=== PATIENT | male | born 1995 | race Caucasian/White ===

== ENCOUNTER 2016-07-05 10:10 | Emergency (ER) | payer OTHER ==
[~2016-07-05] VITALS: Ht 167.6 cm; Wt 80.0 kg
[~2016-07-05 10:10] MED LIST: AMOX500T PO; ANTI2TAB PO; ZOFR4TAB3 PO
[2016-07-05 10:11] VITALS: BP 133/65; PULSE 67; RESP 12; TEMP 98.1; O2SAT 99
[2016-07-05] MEDS ORDERED: LIDOCAINE HCL 1% 50 ML VIAL INFIL ONE (11:00)
[2016-07-05] MEDS ORDERED: NAPR500 PO (11:50)
[2016-07-05] MEDS ORDERED: BACT400T PO (11:50)
[2016-07-05] MEDS ORDERED: HYDR-3533 PO (11:50)
--- NOTE | 2016-07-05 11:50 | PD ---
HPI Chief Complaint: Skin Problem Time Seen by Provider: 10:22 Travel History International Travel<30 days: No Contact w/Intl Traveler<30days: No Traveled to known affect area: No History of Present Illness HPI 20-year-old man with a draining pilonidal abscess to his superior gluteal cleft. Never noticed it before. Pain redness swelling for the past couple days. Draining for the past day or 2. No other complaints. History Past Medical History Medical History: Denies Significant Hx Tetanus Vaccination: Unknown Influenza Vaccination: Yes Social History Alcohol Use: Yes (occ) Tobacco Use: Yes (OCCASIONAL CIGAR) Allergies-Medications (Allergen,Severity, Reaction): Coded Allergies: Vancomycin (Verified Allergy, Severe, RED, 07/05/16) Reported Meds & Prescriptions Reported Meds & Active Scripts Active No Active Prescriptions or Reported Medications Review of Systems Except as stated in HPI: all other systems reviewed are Neg Physical Exam Narrative GENERAL: Well-appearing 20-year-old man, no acute distress. SKIN: Warm and dry. CARDIOVASCULAR: Warm and well perfused. RESPIRATORY: Normal rate and effort. MUSCULOSKELETAL: Small area draining redness in the superior gluteal cleft. NEUROLOGICAL: Awake and alert. No gross deficits. Data Data Last Documented VS Vital Signs Date Time Temp Pulse Resp B/P Pulse Ox O2 Delivery O2 Flow Rate FiO2 07/05/16 10:35 16 07/05/16 10:11 98.1 67 133/65 99 Room Air Orders Lidocaine 1% Inj (50 Ml) (Xylocaine 1% I (07/05/16 11:00) [facility] Medical Decision Making Medical Screen Exam Complete: Yes Emergency Medical Condition: Yes Differential Diagnosis Abscess, pilonidal cyst, other Narrative Course Medical decision making 20-year-old male with an infected pilonidal cyst. Drained bedside. Procedures Procedure Narrative INCISION AND DRAINAGE OF ABSCESS: The area was prepped and was sterilely draped. A subcutaneous wheal of % Xylocaine 1 with a total number 5 mL was used to anesthetize the area. The area was properly anesthetized. A number 11 scalpel was used to make a 1-cm incision across the area of the abscess. Cultures were obtained. The abscess was drained an irrigated with normal saline. Quarter inch iodoform packing was placed in the wound. Sterile dressing applied. Patient advised to have packing removed in two days. Diagnosis Primary Impression: Pilonidal abscess Additional Instructions: Keep area clean and dry. Remove packing in 48 hours. Take medications as prescribed. Return to the emergency department for any new or worsening symptoms. Med/Other Pt SpecificInfo: Prescription(s) given Scripts Sulfamethoxazole-Trimethoprim (Bactrim)400-80 Mg Tab1 Tab PO BID 5 Days Ref 0 Prov:Cheko Levy MD 07/05/16 Hydrocodone-Acetaminophen (Lortab)5-325 Mg Tab1-2 Tab PO Q6H PRN (PAIN) #4 TAB Prov:Cheko Levy MD 07/05/16 Naproxen (Naprosyn)500 Mg Szv657 Mg PO BID PRN (PAIN SCALE 1 TO 10) #20 TAB Prov:Cheko Levy MD 07/05/16 Disposition: 01 DISCHARGE HOME Condition: Stable Cheko Levy MD Jul 05, 2016 11:50
== END 2016-07-05 12:15 | disposition home or self-care (01) ==
LOC: NEPB 10:10
DX: L05.01 Pilonidal cyst with abscess (principal)
CPT/HCPCS: 10061

== ENCOUNTER 2016-09-10 10:38 | Emergency (ER) | payer OTHER ==
[~2016-09-10] VITALS: Ht 167.6 cm; Wt 71.5 kg
[~2016-09-10 10:38] MED LIST changes: -AMOX500T PO; -ANTI2TAB PO; +BACT400T PO; +HYDR-3533 PO; +NAPR500 PO; -ZOFR4TAB3 PO
[2016-09-10 10:40] VITALS: BP 140/76; PULSE 56; RESP 20; TEMP 98.4; O2SAT 100
[2016-09-10] MEDS ORDERED: SODIUM CHLOR 0.9% 1000 ML INJ 1,000 ML IV SCH (11:04)
[2016-09-10] MEDS ORDERED: ONDANSETRON HCL 4 MG/2 ML VIAL IVP ONE (11:15)
[2016-09-10 11:18] LABS: BASOPHIL % 0.4 % (0.0-2.0); EOSINOPHIL % 0.5 % (0.0-4.0); HEMATOCRIT 44.4 % (39.0-51.0); HEMO FLAGS DIFF FINAL; LYMPHOCYTE # 1.3 TH/MM3 (1.0-4.8); MEAN CELL VOLUME 86.1 FL (80.0-100.0); MEAN CORPUSCULAR HEMOGLOBIN 29.5 PG (27.0-34.0); MEAN CORPUSCULAR HGB CONC 34.2 % (32.0-36.0); NEUT % 72.1 % (16.0-70.0); PLATELET COUNT 215 TH/MM3 (150-450); RED BLOOD COUNT 5.16 MIL/MM3 (4.50-5.90); RED CELL DISTRIBUTION WIDTH 12.9 % (11.6-17.2)
[2016-09-10] MEDS ORDERED: FAMOTIDINE 20 MG/2 ML VIAL IV PUSH ONE (11:30)
--- NOTE | 2016-09-10 11:31 | PD ---
HPI Chief Complaint: GI Complaint Time Seen by Provider: 11:25 Travel History International Travel<30 days: No Contact w/Intl Traveler<30days: No Traveled to known affect area: No History of Present Illness HPI 20 yo male here for evaluation of nausea and vomiting the mornings as well as inability to keep anything down per patient. Per patient his been going on for almost a couple months now. Per patient is progressively gotten worse the past 3 days. Per patient he usually wakes up with nausea and vomiting. Denies any abdominal pain. No bowel movement urinary issues. He does tell me that the bowels a little more likely than usual but he believes that this is because he has not been eating as much. Per patient he also feels anorexic. He denies drinking a lot of alcohol. No drugs. Allergy to vancomycin. Patient was recently seen here for analysis and he states that this is not related and his had the symptoms before this. He has an allergy to vancomycin. He states compliance with treatment for the pilonidal cyst. Per patient he has no pain. He does feel dehydrated and he was seen drinking water in the room with no distress. Per patient he has no symptoms. Patient has not seen anybody for this. PFSH Past Medical History Medical History: Denies Significant Hx Diminished Hearing: No Immunizations Current: No Past Surgical History Surgical History: No Previous Surgery Tonsillectomy: Yes Social History Alcohol Use: No Tobacco Use: No Substance Use: No Allergies-Medications (Allergen,Severity, Reaction): Coded Allergies: Vancomycin (Verified Allergy, Severe, RED, 09/10/16) Reported Meds & Prescriptions Reported Meds & Active Scripts Active Protonix (Pantoprazole Sodium) 20 Mg Tab 20 Mg PO DAILY PRN Ranitidine (Ranitidine HCl) 150 Mg Tab 150 Mg PO BID PRN Zofran (Ondansetron HCl) 4 Mg Tab 4 Mg PO Q6HR PRN Review of Systems Except as stated in HPI: all other systems reviewed are Neg Physical Exam Narrative GENERAL: SKIN: Warm and dry. HEAD: Atraumatic. Normocephalic. EYES: Pupils equal and round. No scleral icterus. No injection or drainage. ENT: No nasal bleeding or discharge. Mucous membranes pink and moist. Tongue is midline. No uvula deviation. NECK: Trachea midline. No JVD. CARDIOVASCULAR: Regular rate and rhythm. No murmurs, S3, S4. RESPIRATORY: No accessory muscle use. Clear to auscultation. Breath sounds equal bilaterally. GASTROINTESTINAL: Abdomen soft, non-tender, nondistended. Hepatic and splenic margins not palpable. MUSCULOSKELETAL: Extremities without clubbing, cyanosis, or edema. No obvious deformities. Full range of motion of the upper and lower extremities bilaterally. 2+ pulses bilaterally. NEUROLOGICAL: Awake and alert. No obvious cranial nerve deficits. Motor grossly within normal limits. Five out of 5 muscle strength in the arms and legs. Normal speech. PSYCHIATRIC: Appropriate mood and affect; insight and judgment normal. Data Data Last Documented VS Vital Signs Date Time Temp Pulse Resp B/P Pulse Ox O2 Delivery O2 Flow Rate FiO2 09/10/16 10:40 98.4 56 20 140/76 100 Room Air Orders Complete Blood Count With Diff (09/10/16 11:04) Comprehensive Metabolic Panel (09/10/16 11:04) Lipase (09/10/16 11:04) Urinalysis - C+S If Indicated (09/10/16 11:04) Magnesium (Mg) (09/10/16 11:04) Thyroid Stimulating Hormone (09/10/16 11:04) Iv Access Insert/Monitor (09/10/16 11:04) Ondansetron Inj (Zofran Inj) (09/10/16 11:15) Sodium Chlor 0.9% 1000 Ml Inj (Ns 1000 M (09/10/16 11:04) Famotidine Inj (Pepcid Inj) (09/10/16 11:30) Ct Abd/Pel W Iv Contrast(Rout) (09/10/16 ) Iohexol 350 Inj (Omnipaque 350 Inj) (09/10/16 12:35) Labs Laboratory Tests Test 09/10/16 09/10/16 11:08 11:45 White Blood Count 7.0 TH/MM3 Red Blood Count 5.16 MIL/MM3 Hemoglobin 15.2 GM/DL Hematocrit 44.4 % Mean Corpuscular Volume 86.1 FL Mean Corpuscular Hemoglobin 29.5 PG Mean Corpuscular Hemoglobin 34.2 % Concent Red Cell Distribution Width 12.9 % Platelet Count 215 TH/MM3 Mean Platelet Volume 7.4 FL Neutrophils (%) (Auto) 72.1 % Lymphocytes (%) (Auto) 19.0 % Monocytes (%) (Auto) 8.0 % Eosinophils (%) (Auto) 0.5 % Basophils (%) (Auto) 0.4 % Neutrophils # (Auto) 5.0 TH/MM3 Lymphocytes # (Auto) 1.3 TH/MM3 Monocytes # (Auto) 0.6 TH/MM3 Eosinophils # (Auto) 0.0 TH/MM3 Basophils # (Auto) 0.0 TH/MM3 CBC Comment DIFF FINAL Differential Comment Sodium Level 142 MEQ/L Potassium Level 4.2 MEQ/L Chloride Level 106 MEQ/L Carbon Dioxide Level 30.0 MEQ/L Anion Gap 6 MEQ/L Blood Urea Nitrogen 14 MG/DL Creatinine 0.80 MG/DL Estimat Glomerular Filtration 123 ML/MIN Rate Random Glucose 102 MG/DL Calcium Level 9.4 MG/DL Magnesium Level 2.3 MG/DL Total Bilirubin 0.7 MG/DL Aspartate Amino Transf 16 U/L (AST/SGOT) Alanine Aminotransferase 35 U/L (ALT/SGPT) Alkaline Phosphatase 59 U/L Total Protein 8.1 GM/DL Albumin 4.6 GM/DL Lipase 511 U/L Thyroid Stimulating Hormone 2.480 uIU/ML 3rd Gen Urine Color YELLOW Urine Turbidity CLEAR Urine pH 6.0 Urine Specific [place] 1.028 Urine Protein TRACE mg/dL Urine Glucose (UA) NEG mg/dL Urine Ketones NEG mg/dL Urine Occult Blood NEG Urine Nitrite NEG Urine Bilirubin NEG Urine Urobilinogen 2.0 MG/DL Urine Leukocyte Esterase NEG Urine RBC LESS THAN 1 /hpf Urine WBC 1 /hpf Urine Squamous Epithelial <1 /hpf Cells Urine Transitional Epithelial <1 /hpf Cells Urine Mucus FEW /lpf Microscopic Urinalysis Comment CULT NOT INDICATED MDM Medical Decision Making Medical Screen Exam Complete: Yes Emergency Medical Condition: Yes Medical Record Reviewed: Yes Interpretation(s) CBC Diagram 09/10/16 11:08 BMP Diagram 09/10/16 11:08 LFTs WNL UA negative CT abdominal and pelvis was negative for acute disease. Differential Diagnosis Enteritis versus acute abdomen versus nausea and vomiting versus cyclical nausea and vomiting versus gastroparesis versus gastritis Narrative Course 20-year-old male that presents to the ED for evaluation of anorexia, nausea and vomiting. Patient was properly examined and was found to have signs and symptoms of unclear etiology. Patient's physical exam is benign. I do recommend some lab work to rule out any sign of acute disease. Labs showed elevated lipase of 500. Case discussed in my attending Dr. Danielson who recommends imaging. CT was done and was negative for acute disease. Patient was reassured. His tenderness appears to be likely mild pancreatitis. I suspect also reflux as patient symptoms have been ongoing for a couple of months. No sign of stones. Patient feels improved. This time patient has not vomited and feels not nausea. I will treat patient with ranitidine, Protonix to cover for reflux as well as Zofran for the nausea. Patient was told to keep hydrated. See ED for any worsening symptoms. Follow up with PCP. Diagnosis Primary Impression: Nausea & vomiting Qualified Code: R11.2 - Non-intractable vomiting with nausea, unspecified vomiting type Additional Impressions: GERD (gastroesophageal reflux disease) Qualified Code: K21.9 - Gastroesophageal reflux disease, esophagitis presence not specified Pancreatitis, acute Qualified Code: K85.90 - Acute pancreatitis, unspecified complication status, unspecified pancreatitis type Patient Instructions: General Instructions Additional Instructions: Take medications as prescribed. Follow-up with PCP or GI specialist. See ED for worsening symptoms. Drink plenty of fluids. Med/Other Pt SpecificInfo: Prescription(s) given Scripts Pantoprazole (Protonix)20 Mg Tab20 Mg PO DAILY PRN (REFLUX) #30 TAB Ref 0 Prov:Jorge Danielson MD 09/10/16 Ranitidine 150 Mg [id number] Mg PO BID PRN (ABDOMINAL CRAMPING) #30 TAB Ref 0 Prov:Jorge Danielson MD 09/10/16 Ondansetron (Zofran)4 Mg Tab4 Mg PO Q6HR PRN (NAUSEA OR VOMITING) #20 TAB Prov:Jorge Danielson MD 09/10/16 Disposition: 01 DISCHARGE HOME Condition: Stable Jh Ferrara September 10, 2016 11:31
[2016-09-10 11:38] LABS: ALT (GPT) 35 U/L (9-52); ANION GAP 6 MEQ/L (5-15); AST (GOT) 16 U/L (15-39); BLOOD UREA NITROGEN 14 MG/DL (7-18); CHLORIDE 106 MEQ/L (98-107); GLOMERULAR FILTRATION RATE 123 ML/MIN (>89); MAGNESIUM 2.3 MG/DL (1.5-2.5); POTASSIUM 4.2 MEQ/L (3.5-5.1); SODIUM (NA) 142 MEQ/L (136-145)
[2016-09-10 11:48] LABS: ALKALINE PHOSPHATASE 59 U/L (45-117); TOTAL BILIRUBIN ADULT 0.7 MG/DL (0.2-1.0)
[2016-09-10 12:14] LABS: BLOOD, URINE NEG (NEG); GLUCOSE,URINE NEG (NEG); KETONE, URINE NEG (NEG); MUCUS URINE FEW /lpf (OCC); NITRITE,URINE NEG (NEG); SQUAMOUS EPITHELIAL CELL URINE <1 /hpf (0-5); TRANSITIONAL EPI CELLS, URINE <1 /hpf; URINE COLOR YELLOW (YELLW/STRAW)
[2016-09-10 12:15] LABS: COMMENT (UR) CULT NOT INDICATED; CULTURE IF INDICATED CULT NOT INDICATED
[2016-09-10] MEDS ORDERED: IOHEXOL 350 MG/ML 10 ML VIAL (for RAD DIAG) IV ONE (12:35)
--- NOTE | 2016-09-10 12:48 | RADRPT ---
EXAM DATE/TIME: 09/10/2016 12:24 [facility] COMPARISON: No previous studies available for comparison. INDICATIONS : Abdomen pain and vomiting. IV CONTRAST: 100 cc Omnipaque 350 (iohexol) IV ORAL CONTRAST: No oral contrast ingested. RADIATION DOSE: 9.96 CTDIvol (mGy) MEDICAL HISTORY : None SURGICAL HISTORY : Tonsillectomy. ENCOUNTER: Initial ACUITY: 1 day PAIN SCALE: 3/10 LOCATION: Bilateral abdomen. TECHNIQUE: Volumetric scanning of the abdomen and pelvis was performed. Using automated exposure control and ad justment of the mA and/or kV according to patient size, radiation dose was kept as low as reasonably achievable to obtain optimal diagnostic quality images. FINDINGS: LOWER LUNGS: The visualized lower lungs are clear. LIVER: Homogeneous density without lesion. There is no dilation of the biliary tree. No calcified gallston es. SPLEEN: Normal size without lesion. PANCREAS: Within normal limits. KIDNEYS: Normal in size and shape. There is no mass, stone or hydronephrosis. ADRENAL GLANDS: Within normal limits. VASCULAR: There is no aortic aneurysm. BOWEL/MESENTERY: The stomach, small bowel, and colon demonstrate no acute abnormality. There is no free intraperitone al air or fluid. ABDOMINAL WALL: Within normal limits. RETROPERITONEUM: There is no lymphadenopathy. BLADDER: No wall thickening or mass. REPRODUCTIVE: Within normal limits. INGUINAL: There is no lymphadenopathy or hernia. MUSCULOSKELETAL: Within normal limits for patient age. CONCLUSION: Normal examination. Geremias Rojas MD on September 10, 2016 at 12:46 Board Certified Radiologist. This report was verified electronically.
[2016-09-10] MEDS ORDERED: RANI150T PO (12:52)
[2016-09-10] MEDS ORDERED: ZOFR4TAB PO (12:52)
[2016-09-10] MEDS ORDERED: PANT20 PO (12:52)
[2016-09-10 12:59] VITALS: BP 136/78; PULSE 62; RESP 16; O2SAT 100
== END 2016-09-10 13:07 | disposition home or self-care (01) ==
LOC: NEPD 10:38
DX: R11.2 Nausea with vomiting, unspecified (principal); K21.9 Gastro-esophageal reflux disease without esophagitis; K85.90 Acute pancreatitis without necrosis or infection, unspecified
CPT/HCPCS: 74177; 80053; 81001; 83690; 83735; 84443; 85025; 96361; 96374; 96375; 99284; J2405; J7030; Q9967